=== PATIENT | male | born 1945 | race Caucasian/White ===

== ENCOUNTER 2020-12-21 18:25 | Inpatient (IN) | payer MEDICARE, OTHER ==
[~2020-12-21] VITALS: Ht 172.7 cm; Wt 60.8 kg
[2020-12-21 19:34] LABS: Basophils # (auto) 0 10 ^3/uL (0-0.2); Basophils % (auto) 0.4 % (0.0-2.0); Eosinophils # (auto) 0.1 10 ^3/uL (0-0.8); Eosinophils % (auto) 0.5 % (0.0-7.0); Hemoglobin 12.4 g/dL (13.5-17.5); Lymphocytes # (auto) 0.9 10 ^3/uL (0.4-5.4); Lymphocytes % (auto) 7.9 % (10.0-50.0); Mean Corpuscular Hemoglobin 28.3 pg (28.0-32.0); Mean Corpuscular Hgb Conc. 32.7 g/dL (32.0-36.0); Mean Corpuscular Volume 86.6 fL (80.0-100.0); Monocytes # (auto) 0.9 10 ^3/uL (0-1.3); Monocytes % (auto) 7.6 % (0.0-12.0); Neutrophils # (auto) 9.6 10 ^3/uL (1.6-8.6); Neutrophils % (auto) 83.6 % (37.0-80.0); Platelet Count (auto) 405 10^3/uL (140-450); Red Blood Cells 4.39 10^6/uL (4.5-5.90); Red Cell Distribution Width 18.2 % (11.8-14.3); White Blood Cell 11.5 10^3/uL (4.4-10.8)
[2020-12-21 19:58] LABS: Alanine Aminotransferase 22 U/L (16-61); Albumin 3.2 g/dL (3.4-5.0); Anion Gap 8 (5-15); Aspartate Aminotransferase 13 U/L (15-37); BUN/Creatinine Ratio 24.7; Blood Urea Nitrogen 18 mg/dL (7-18); Calcium 9.1 mg/dL (8.5-10.1); Carbon Dioxide 27 mmol/L (21-32); Chloride 101 mmol/L (98-107); GFR African American 135 mL/min; GFR Non-African American 112 mL/min; Glucose 94 mg/dL (74-106); Potassium 3.8 mmol/L (3.5-5.1); Sodium 136 mmol/L (136-145)
[2020-12-21 20:04] LABS: Alkaline Phosphatase 93 U/L (45-117); Bilirubin, Total 0.9 mg/dL (0.2-1.0); Total Protein 7.5 g/dL (6.4-8.2)
[2020-12-21] MEDS ORDERED: FUROSEMIDE 20 MG/2 ML VIAL IV ONE (21:30)
[2020-12-21 22:27] LABS: INR 1.02 (0.9-1.15); Partial Thromboplastin Time 32.5 sec (23.0-31.2)
[2020-12-21] MEDS ORDERED: LORazepam 2MG/ML-1ML VIAL IV ONE (22:30)
[2020-12-21] MEDS ORDERED: MORPHINE SULF INJ 2 MG/ML SYRINGE 1ML IV PRN (22:45)
[2020-12-21] MEDS ORDERED: ACETAMINOPHEN 325 MG TAB PO PRN (22:45)
[2020-12-21] MEDS ORDERED: NITROGLYCERIN 0.4 MG SL TAB SL PRN (22:45)
[2020-12-21] MEDS ORDERED: TEMAZEPAM 15 MG CAP PO PRN (22:45)
[2020-12-21] MEDS ORDERED: ONDANSETRON HCL 4 MG/2 ML VIAL IV PRN (22:45)
[2020-12-22 03:33] VITALS: BP 136/86
[2020-12-22 05:00] VITALS: BP 136/86
[2020-12-22] MEDS ORDERED: PNEUMOCOCCAL VACC POLYS 25 MCG/0.5 ML VIAL IM ONE (06:15)
[2020-12-22] MEDS ORDERED: IOHEXOL 350 MG/ML 100ML IJ ONE (08:29)
[2020-12-22 09:00] VITALS: BP 139/87
[2020-12-22] MEDS ORDERED: ENOXAPARIN SOD 40 MG/0.4 ML SYRINGE SC SCH (10:00)
[2020-12-22] MEDS ORDERED: CARVEDILOL 3.125 MG TAB PO SCH (10:00)
[2020-12-22] MEDS ORDERED: ASPirin 81 mg TAB PO SCH (10:00)
[2020-12-22] MEDS ORDERED: FUROSEMIDE 40 MG TAB PO SCH (10:00)
[2020-12-22] MEDS ORDERED: FAMOTIDINE 20 MG TAB PO SCH (10:00)
[2020-12-22 11:01] LABS: Basophils # (auto) 0.1 10 ^3/uL (0-0.2); Basophils % (auto) 0.5 % (0.0-2.0); Eosinophils # (auto) 0 10 ^3/uL (0-0.8); Eosinophils % (auto) 0.1 % (0.0-7.0); Hematocrit 38.8 % (41.0-53.0); Hemoglobin 12.9 g/dL (13.5-17.5); Lymphocytes # (auto) 0.6 10 ^3/uL (0.4-5.4); Lymphocytes % (auto) 3.9 % (10.0-50.0); Mean Corpuscular Hemoglobin 28.9 pg (28.0-32.0); Mean Corpuscular Hgb Conc. 33.2 g/dL (32.0-36.0); Mean Corpuscular Volume 86.8 fL (80.0-100.0); Monocytes # (auto) 1.7 10 ^3/uL (0-1.3); Monocytes % (auto) 11.5 % (0.0-12.0); Neutrophils # (auto) 12.6 10 ^3/uL (1.6-8.6); Platelet Count (auto) 394 10^3/uL (140-450); Red Blood Cells 4.47 10^6/uL (4.5-5.90)
[2020-12-22 11:18] LABS: Calcium 9.3 mg/dL (8.5-10.1); Potassium 4.5 mmol/L (3.5-5.1)
[2020-12-22 11:22] LABS: BUN/Creatinine Ratio 26.3; Bilirubin, Total 1.2 mg/dL (0.2-1.0); Total Protein 7.6 g/dL (6.4-8.2)
[2020-12-22] MEDS ORDERED: METOPROLOL TARTRATE 25 MG TAB PO ONE (12:15)
[2020-12-22 13:00] VITALS: BP 125/66
[2020-12-22] MEDS ORDERED: DOXY-112 PO (16:31)
[2020-12-22] MEDS ORDERED: MET25T PO (16:31)
[2020-12-22] MEDS ORDERED: ASPI1CHW15 PO (16:31)
[2020-12-22] MEDS ORDERED: ATOR10TA52 PO (16:31)
[2020-12-22] MEDS ORDERED: ASCO500T11 PO (16:31)
[2020-12-22] MEDS ORDERED: ZINC220T6 PO (16:31)
[2020-12-22] MEDS ORDERED: CHOL20007 PO (16:31)
[2020-12-22] MEDS ORDERED: ALBUAER3 IN (16:31)
[2020-12-22] MEDS ORDERED: METH4PAK PO (16:34)
[2020-12-22] MEDS ORDERED: PANT40TA2 PO (16:34)
[2020-12-22 17:00] VITALS: BP 137/86
[2020-12-22] MEDS ORDERED: METOPROLOL TARTRATE 25 MG TAB PO SCH (22:00)
[2020-12-22] MEDS ORDERED: ATORVASTATIN 20 MG TAB PO SCH (22:00)
[2020-12-23] MEDS ORDERED: IOHEXOL 350 MG/ML 100ML IJ ONE (01:20)
== END 2020-12-22 19:15 | disposition home health service (06) | DRG 177 ==
LOC: EDBD 18:25 → ER 18:29 → TELE 22:40 → TELE-WESTW 12-22 03:34
PROVIDERS: ADMIT Nurse Practitioner; ATTEND Internal Medicine
DX: U07.1 COVID-19 (principal); J12.82 Pneumonia due to coronavirus disease 2019; I50.31 Acute diastolic (congestive) heart failure; E44.0 Moderate protein-calorie malnutrition; I20.0 Unstable angina; F41.1 Generalized anxiety disorder; M10.9 Gout, unspecified; I11.0 Hypertensive heart disease with heart failure; Z82.49 Family history of ischemic heart disease and other diseases of the circulatory system; Z23 Encounter for immunization; Z68.20 Body mass index [BMI] 20.0-20.9, adult; Z79.899 Other long term (current) drug therapy
CPT/HCPCS: 36415; 71045; 71275; 80053; 80061; 82728; 83880; 84484; 84550; 85025; 85379; 85610; 85730; 87426; 93005; 93306; 93970; 96374; 96375; 99291; G0378

== ENCOUNTER 2021-01-01 12:28 | Emergency (ER) | payer MEDICARE ==
[~2021-01-01] VITALS: Ht 177.8 cm; Wt 72.6 kg
[~2021-01-01 12:28] MED LIST: ALBUAER3 IN; ASCO500T11 PO; ASPI1CHW15 PO; ATOR10TA52 PO; CHOL20007 PO; DOXY-112 PO; MET25T PO; METH4PAK PO; PANT40TA2 PO; ZINC220T6 PO
[2021-01-01 13:12] LABS: Basophils # (auto) 0.1 10 ^3/uL (0-0.2); Eosinophils # (auto) 0.2 10 ^3/uL (0-0.8); Eosinophils % (auto) 1.8 % (0.0-7.0); Lymphocytes # (auto) 1.5 10 ^3/uL (0.4-5.4)
[2021-01-01 13:13] LABS: Hematocrit 37.8 % (41.0-53.0); Hemoglobin 12.4 g/dL (13.5-17.5); Lymphocytes % (auto) 15.3 % (10.0-50.0); Mean Corpuscular Hemoglobin 28.6 pg (28.0-32.0); Mean Corpuscular Hgb Conc. 32.7 g/dL (32.0-36.0); Mean Corpuscular Volume 87.4 fL (80.0-100.0); Monocytes # (auto) 1.1 10 ^3/uL (0-1.3); Monocytes % (auto) 10.8 % (0.0-12.0); Neutrophils # (auto) 7.1 10 ^3/uL (1.6-8.6); Neutrophils % (auto) 71.1 % (37.0-80.0); Red Blood Cells 4.33 10^6/uL (4.5-5.90); Red Cell Distribution Width 17.4 % (11.8-14.3)
[2021-01-01 13:33] LABS: BUN/Creatinine Ratio 28.9; Calcium 8.8 mg/dL (8.5-10.1); Potassium 4.4 mmol/L (3.5-5.1)
[2021-01-01 13:36] LABS: Platelet Count (auto) 504 10^3/uL (140-450)
[2021-01-01 13:47] VITALS: BP 130/80
== END 2021-01-01 15:06 | disposition home or self-care (01) ==
LOC: ER 12:28 → EDBD 12:28 → ER 15:06
DX: M79.602 Pain in left arm (principal); M79.89 Other specified soft tissue disorders; F41.9 Anxiety disorder, unspecified
CPT/HCPCS: 36415; 80048; 85025; 93971